=== PATIENT | male | born 1995 | race American Indian/Alaskan Native ===

== ENCOUNTER 2016-11-10 02:16 | Emergency (ER) | payer OTHER ==
[2016-11-10 02:35] VITALS: BP 139/91
[2016-11-10] MEDS ORDERED: MOTRIN ONE (03:21)
[2016-11-10] MEDS ORDERED: FLEXERIL ONE ×2 (03:21→03:45)
[2016-11-10] MEDS ORDERED: MOTRIN PO ONE (03:26)
[2016-11-10] MEDS ORDERED: FLEXERIL PO ONE (03:26)
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
== END 2016-11-10 03:57 | disposition home or self-care (01) ==
LOC: ED 02:16
DX: M79.1 Myalgia (principal); Z72.0 Tobacco use; V43.62XA Car passenger injured in collision with other type car in traffic accident, initial encounter; Y93.9 Activity, unspecified; Y99.9 Unspecified external cause status; Y92.410 Unspecified street and highway as the place of occurrence of the external cause
CPT/HCPCS: 99282

== ENCOUNTER 2018-01-03 05:12 | Emergency (ER) | payer SELFPAY ==
[2018-01-03 09:03] VITALS: BP 124/81
--- NOTE | 2018-01-03 09:12 | Emergency Department Report ---
ED Upper Extremity Inj HPI - General Chief Complaint: Extremity Injury, Upper Stated Complaint: RIGHT ELBOW PAIN Time Seen by Provider: 01/03/18 08:57 Source: patient Mode of arrival: Ambulatory Limitations: No Limitations - History of Present Illness Initial Comments: This is a 22-year-old male nontoxic, well nourished in appearance, no acute signs of distress presents to the ED with c/o of right elbow pain 2 days. Patient stated he was going to morning and believes he hit his elbow against the bed develop pain. Patient denies any numbness, tingling, fever, chills, nausea, vomiting, chest pain and shortness of breath. Patient denies any joint swelling or redness. Patient denies radiation of pain. Patient denies any allergies or significant past medical history. MD Complaint: Injury to:: right, elbow -: days(s) (2) Other Extremity Injury: Elbow: Right Other Injuries: none Place: home Severity scale (0 -10): 8 Improves With: immobilization Worsens With: movement of extremity Context: direct blow Associated Symptoms: denies other symptoms. denies: weakness, numbness, neck pain, suspects foreign body, nausea/vomiting, heard/felt popping sensat - Related Data Previous Rx's Medication Instructions Recorded Last Taken Type Cyclobenzaprine [Flexeril] 10 mg PO TID PRN #15 tablet 11/10/16 Unknown Rx Ibuprofen [Motrin] 800 mg PO Q8HR PRN #30 tablet 11/10/16 Unknown Rx Ibuprofen [Motrin] 600 mg PO Q8H PRN #30 tablet 01/03/18 Unknown Rx Allergies Allergy/AdvReac Type Severity Reaction Status Date / Time No Known Allergies Allergy Unverified 01/03/18 06:07 ED Review of Systems ROS: Stated complaint: RIGHT ELBOW PAIN Other details as noted in HPI Constitutional: denies: chills, fever Eyes: denies: eye pain, eye discharge, vision change ENT: denies: ear pain, throat pain Respiratory: denies: cough, shortness of breath, wheezing Cardiovascular: denies: chest pain, palpitations Endocrine: no symptoms reported Gastrointestinal: denies: abdominal pain, nausea, diarrhea Genitourinary: denies: urgency, dysuria Musculoskeletal: arthralgia. denies: back pain, joint swelling Skin: denies: rash, lesions Neurological: denies: headache, weakness, paresthesias Psychiatric: denies: anxiety, depression Hematological/Lymphatic: denies: easy bleeding, easy bruising ED Past Medical Hx - Past Medical History Previous Medical History?: No - Social History Smoking Status: Current Every Day Smoker - Medications Home Medications: Home Medications Medication Instructions Recorded Confirmed Last Taken Type Cyclobenzaprine [Flexeril] 10 mg PO TID PRN #15 tablet 11/10/16 Unknown Rx Ibuprofen [Motrin] 800 mg PO Q8HR PRN #30 tablet 11/10/16 Unknown Rx Ibuprofen [Motrin] 600 mg PO Q8H PRN #30 tablet 01/03/18 Unknown Rx ED Physical Exam - General Limitations: No Limitations General appearance: alert, in no apparent distress - Head Head exam: Present: atraumatic, normocephalic - Eye Eye exam: Present: normal appearance, PERRL, EOMI Pupils: Present: normal accommodation - ENT ENT exam: Present: normal exam, normal orophraynx, mucous membranes moist, TM's normal bilaterally, normal external ear exam - Neck Neck exam: Present: normal inspection, full ROM. Absent: tenderness, meningismus, lymphadenopathy, thyromegaly - Respiratory Respiratory exam: Present: normal lung sounds bilaterally. Absent: respiratory distress, wheezes, rales, rhonchi, stridor, chest wall tenderness, accessory muscle use, decreased breath sounds, prolonged expiratory - Cardiovascular Cardiovascular Exam: Present: regular rate, normal rhythm, normal heart sounds. Absent: bradycardia, irregular rhythm, systolic murmur, diastolic murmur, rubs , gallop - GI/Abdominal GI/Abdominal exam: Present: soft, normal bowel sounds. Absent: distended, tenderness, guarding, rebound, rigid, diminished bowel sounds - Rectal Rectal exam: Present: deferred - Extremities Exam Extremities exam: Present: normal inspection, full ROM, tenderness, normal capillary refill. Absent: pedal edema, joint swelling, calf tenderness - Expanded Upper Extremity Exam Right General: Present: normal inspection Shoulder Exam: Present: normal inspection, full ROM. Absent: tenderness, swelling, abrasion, laceration, ecchymosis, deformity, crepidus, dislocation, erythema, tenderness over AC joint Upper Arm exam: Present: normal inspection, full ROM. Absent: tenderness, swelling, abrasion, laceration, ecchymosis, deformity, crepidus, dislocation, erythema Elbow exam: Present: normal inspection, full ROM, tenderness. Absent: swelling , abrasion, laceration, ecchymosis, deformity, crepidus, dislocation, erythema, effusion, pain w/ pronation/supination, tenderness over radial head Forearm Wrist exam: Present: normal inspection, full ROM. Absent: tenderness, swelling, abrasion, laceration, ecchymosis, deformity, crepidus, dislocation, erythema, tenderness over anatomical snuff box, pain with axial thumb loading Hand Wrist exam: Present: normal inspection, full ROM. Absent: tenderness, swelling, abrasion, laceration, ecchymosis, deformity, crepidus, dislocation, erythema, amputation, nail avulsion, subungual hematoma Neuro motor exam: Present: wrist extension intact, thumb opposition intact, thumb IP flexion intact, thumb adduction intact, fingers 2-5 abduction intact Neurosensory exam: Present: 2-point discrimination, radial nerve intact, ulnar nerve intact, median nerve intact Vascular: Present: vascular compromise, normal capillary refill, radial pulse, brachial pulse, ulnar pulse - Back Exam Back exam: Present: normal inspection, full ROM. Absent: tenderness, CVA tenderness (R), CVA tenderness (L), muscle spasm, paraspinal tenderness, vertebral tenderness, rash noted - Neurological Exam Neurological exam: Present: alert, oriented X3, CN II-XII intact, normal gait, reflexes normal - Psychiatric Psychiatric exam: Present: normal affect, normal mood - Skin Skin exam: Present: warm, dry, intact, normal color. Absent: rash ED Course Vital Signs 01/03/18 01/03/18 01/03/18 05:54 06:09 09:03 Temperature 32.1 F L 98.1 F 98.1 F Pulse Rate 49 L 50 L 71 Respiratory 18 18 20 Rate Blood Pressure 121/80 121/80 Blood Pressure 124/81 [Left] O2 Sat by Pulse 98 98 100 Oximetry - Reevaluation(s) Reevaluation #1: 01/03/18 09:12 Patient is speaking in full sentences with no signs of distress noted. ED Medical Decision Making - Medical Decision Making This is a 23-year-old male that presents with left elbows strain. Patient is stable and was examined by me. X-ray has been obtained and dictated by radiologist within normal limits. Patient was notified of x-ray results refocused noted by the patient. There is no joint swelling or joint redness. Normal range of motion. No signs or symptoms of cellulitis or tenosynovitis. Patient received Toradol and Ultram In the ED which placed his symptoms are improving subsided. patient's girlfriend is currently at the bedside and states short of the patient on a discharged. Patient discharged with Motrin. Patient was instructed and referred to Follow-up with a orthopedic doctor in 3-5 days or if symptoms worsen and continue return to emergency room as soon as possible. At time of discharge, the patient does not seem toxic or ill in appearance. No acute signs of distress noted. Patient agrees to discharge treatment plan of care. No further questions noted by the patient. Critical care attestation.: If time is entered above; I have spent that time in minutes in the direct care of this critically ill patient, excluding procedure time. ED Disposition Clinical Impression: Strain of right elbow Qualifiers: Encounter type: initial encounter Qualified Code(s): S56.911A - Strain of unspecified muscles, fascia and tendons at forearm level, right arm, initial encounter Disposition: DC- TO HOME OR SELFCARE Is pt being admited?: No Does the pt Need Aspirin: No Condition: Stable Instructions: Arthralgia (ED), RICE Therapy (ED), Ibuprofen (By mouth) Additional Instructions: Follow-up with a orthopedic doctor in 3-5 days or if symptoms worsen and continue return to emergency room as soon as possible. Prescriptions: Ibuprofen [Motrin] 600 mg PO Q8H PRN #30 tablet PRN Reason: Pain Referrals: PRIMARY MD PAU [Primary Care Provider] - 3-5 Days TORO CURRY MD [Staff Physician] - 3-5 Days [facility] [Outside] - 3-5 Days [facility] [Outside] - 3-5 Days
[2018-01-03] MEDS ORDERED: NORCO 7.5/325 PO ONE (09:14)
[2018-01-03] MEDS ORDERED: TORADOL IM ONE (09:14)
--- NOTE | 2018-01-03 10:07 | XRay Report ---
Right elbow 3 views: History: Elbow pain. Findings: No bony or articular abnormality. No fracture dislocation or soft tissue calcification. No joint effusion. Impression: Essentially negative right elbow. The
== END 2018-01-03 10:17 | disposition home or self-care (01) ==
LOC: ED 05:12
DX: S66.811A Strain of other specified muscles, fascia and tendons at wrist and hand level, right hand, initial encounter (principal); F17.200 Nicotine dependence, unspecified, uncomplicated; W22.03XA Walked into furniture, initial encounter; Y93.89 Activity, other specified; Y92.89 Other specified places as the place of occurrence of the external cause; Y99.8 Other external cause status
CPT/HCPCS: 73080; 93005; 93010; 96372; 99283; J1885

== ENCOUNTER 2019-01-23 21:07 | Emergency (ER) | payer OTHER ==
[2019-01-23 21:17] VITALS: BP 118/68
--- NOTE | 2019-01-23 21:18 | Emergency Department Report ---
Eye Injury/Foreign Body - HPI Duration: 2 Days Eye Location: Bilateral Severity: Mild Tetanus Status: Up to Date Eye Symptoms: Eye Pain: No, Blurred Vision: No, Eye Redness: Yes, Grinding/Hammering Metal: No, Used Eye Protection: No, Contact Lens Use: No, Recalls Injury: No, Photophobia: No Other History: B EYE REDNESS, MILD SWELLING, PINK EYES. NO TRAUMA, NO WELDING, NO CONTACTS. PMH. NONE. RX. NONE. OCC ETOH/CIG ED Review of Systems ROS: Stated complaint: IRRITATED LEFT EYE Other details as noted in HPI Comment: All other systems reviewed and negative Constitutional: denies: chills, fever Eyes: as per HPI, other (NO RECENT URTI). denies: vision change Respiratory: denies: cough Cardiovascular: denies: palpitations Endocrine: denies: flushing Gastrointestinal: denies: nausea Genitourinary: denies: urgency Musculoskeletal: denies: back pain Skin: denies: rash Psychiatric: denies: anxiety Hematological/Lymphatic: denies: easy bleeding ED Past Medical Hx - Past Medical History Previous Medical History?: No - Surgical History Past Surgical History?: No - Family History Family history: no significant - Social History Smoking Status: Current Every Day Smoker Substance Use Type: None - Medications Home Medications: Home Medications Medication Instructions Recorded Confirmed Last Taken Type Cetirizine HCl [ZyrTEC] 10 mg PO DAILY #30 capsule 01/23/19 Unknown Rx Polymyxin B Sulf/Trimethoprim 1 drop OU QID #1 each 01/23/19 Unknown Rx [Polytrim Eye Drops [id number]/0.1%] Eye Injury Exam - Exam General: Vital signs noted. No distress. Alert and acting appropriately. B CONJUNCTIVAL PINKNESS EOM INTACT PERRLA DRAINING NO CONTACTS/TRAUMA TOOK NO OTC MEDS ED Course Vital Signs 01/23/19 01/23/19 21:13 21:14 Temperature 97.7 F 97.7 F Pulse Rate 69 68 Respiratory 18 18 Rate Blood Pressure 118/68 118/68 O2 Sat by Pulse 99 99 Oximetry ED Medical Decision Making - Medical Decision Making SIMPLE CONJUNCTIVITIS STARTED IN ONE EYE, NOW BOTH MATTED IN AM NO EYE PAIN NO VISION CHANGE NO TRAUMA/WELDING ETC TX WITH DROPS AND ANTIHISTAMINE Vital Signs 03/17/19 03/17/19 21:13 21:14 Temperature 97.7 F 97.7 F Pulse Rate 69 68 Respiratory 18 18 Rate Blood Pressure 118/68 118/68 O2 Sat by Pulse 99 99 Oximetry Critical care attestation.: If time is entered above; I have spent that time in minutes in the direct care of this critically ill patient, excluding procedure time. ED Disposition Clinical Impression: Conjunctivitis Disposition: DC-01 TO HOME OR SELFCARE Is pt being admited?: No Does the pt Need Aspirin: No Condition: Stable Instructions: Conjunctivitis (ED) Additional Instructions: MEDS ORDERED TODAY [employer] FOLLOW UP PCP IF PERSISTS Prescriptions: Polymyxin B Sulf/Trimethoprim [Polytrim Eye Drops [id number]/0.1%] 1 drop OU QID #1 each Cetirizine HCl [ZyrTEC] 10 mg PO DAILY #30 capsule Referrals: IZABELLA DEVLIN MD [Primary Care Provider] - 3-5 Days Time of Disposition: 21:18
[2019-01-23] MEDS ORDERED: TOBRADEX OU ONE (21:20)
== END 2019-01-23 21:28 | disposition home or self-care (01) ==
LOC: ED 21:07
DX: H10.9 Unspecified conjunctivitis (principal); F17.200 Nicotine dependence, unspecified, uncomplicated
CPT/HCPCS: 99282

== ENCOUNTER 2021-06-24 12:31 | Emergency (ER) | payer SELFPAY | END 2021-06-24 15:57 | LOC: ED 12:31 ==

== ENCOUNTER 2021-11-01 10:54 | Emergency (ER) | payer SELFPAY | END 2021-11-01 10:55 | disposition left against medical advice (07) | LOC: ED 10:54 | DX: R50.9 Fever, unspecified (principal); Z53.21 Procedure and treatment not carried out due to patient leaving prior to being seen by health care provider ==